=== PATIENT | male | born 1960 | race Caucasian/White ===

== ENCOUNTER → 2020-11-10 12:17 | Outpatient (BNVA) | payer OTHER, SELFPAY | PROVIDERS: Visit Provider Nurse Practitioner Family | DX: M79.601 Pain in right arm (principal) | CPT/HCPCS: 73030 ==

== ENCOUNTER → 2022-07-24 18:02 | Outpatient (BNVA) | payer OTHER, SELFPAY | PROVIDERS: Visit Provider Emergency Medicine | DX: J18.9 Pneumonia, unspecified organism (principal); J20.8 Acute bronchitis due to other specified organisms; B96.89 Other specified bacterial agents as the cause of diseases classified elsewhere | CPT/HCPCS: 71046 ==